=== PATIENT | male | born 1980 | race Caucasian/White ===

== ENCOUNTER 2018-04-13 11:34 | Emergency (ER) | payer MEDICAID ==
[~2018-04-13] VITALS: Ht 170.2 cm; Wt 57.2 kg
--- NOTE | 2018-04-13 11:42 | NUR ---
RECEIVED A 37 Y/O MALE PT VIA AMBULANCE, PT C/O HEADACHE WITH A RT FOREHEAD BUMP. CAME FROM [facility]. PT HAS FELL OFF OF BED. UPON ARRIVAL CONNECTED TO ECG MONITOR SHOWING SR.
[2018-04-13] MEDS ORDERED: LEVETIRACETAM 250 MG TABLET PO ONE (11:45)
[2018-04-13 12:13] LABS: BASOPHILS # (AUTO) 0.1 K/uL (0.0-8.0); BASOPHILS % (AUTO) 0.5 % (0.0-2.0); EOSINOPHILS % (AUTO) 0.2 % (0.0-7.0); HEMATOCRIT 40.9 % (36.7-47.1); HEMOGLOBIN 13.9 g/dL (12.5-16.3); LYMPHOCYTES # (AUTO) 1.1 K/uL (20.0-40.0); LYMPHOCYTES % (AUTO) 7.4 % (20.5-51.5); MEAN CORPUSCULAR HEMOGLOBIN 30.8 uug (23.8-33.4); MEAN CORPUSCULAR HGB CONC 34 g/dL (32.5-36.3); MEAN CORPUSCULAR VOLUME 90.4 fL (73.0-96.2); MONOCYTES # (AUTO) 0.5 K/uL (2.0-10.0); MONOCYTES % (AUTO) 3.7 % (0.0-11.0); NEUTROPHILS # (AUTO) 12.6 K/uL (1.8-8.9); NEUTROPHILS % (AUTO) 88.2 % (38.5-71.5); PLATELET COUNT (AUTO) 190 K/uL (152-348); RED BLOOD CELL COUNT(AUTO) 4.52 MIL/uL (4.06-5.63); WHITE BLOOD COUNT (AUTO) 14.3 K/uL (3.6-10.2)
[2018-04-13 12:19] LABS: CREATININE 0.7 mg/dL (0.6-1.3); POTASSIUM 3.6 mmol/L (3.5-5.1)
[2018-04-13] MEDS ORDERED: CYAN100T3 PO (12:44)
[2018-04-13] MEDS ORDERED: LEVE500T20 PO (12:44)
[2018-04-13] MEDS ORDERED: FERROUS SULFATE PO (12:44)
[2018-04-13] MEDS ORDERED: SULF1TAB48 PO (14:51)
[2018-04-13] MEDS ORDERED: DEXT15DR6 OP (14:51)
[2018-04-13] MEDS ORDERED: CITA10TA17 PO (14:51)
[2018-04-13] MEDS ORDERED: ZOLP5TAB2 PO (14:51)
[2018-04-13] MEDS ORDERED: DARU800T2 PO (14:51)
[2018-04-13] MEDS ORDERED: LACT1TAB20 PO (14:51)
[2018-04-13] MEDS ORDERED: EMTR1TAB6 PO (14:51)
[2018-04-13] MEDS ORDERED: CALC-770 PO (14:51)
[2018-04-13] MEDS ORDERED: SODI1TAB3 PO (14:52)
[2018-04-13] MEDS ORDERED: ONDA4TAB5 PO (14:52)
[2018-04-13] MEDS ORDERED: LEVO150T PO (14:52)
[2018-04-13] MEDS ORDERED: FAMO-132 PO (14:52)
[2018-04-13] MEDS ORDERED: MAGN400O6 PO (14:52)
[2018-04-13] MEDS ORDERED: CHOL400C8 PO (14:52)
[2018-04-13] MEDS ORDERED: VORI200T4 PO (14:52)
[2018-04-13] MEDS ORDERED: ACET325T53 PO (14:52)
[2018-04-13] MEDS ORDERED: LATA2.5D2 EACHEYE (14:52)
[2018-04-13] MEDS ORDERED: OMEG-143 PO (14:52)
[2018-04-13] MEDS ORDERED: RITO100T4 PO (14:52)
[2018-04-13] MEDS ORDERED: MAGN400T6 PO (14:52)
[2018-04-13] MEDS ORDERED: FOLI1TAB16 PO (14:52)
[2018-04-13 15:46] VITALS: BP 112/76
--- NOTE | 2018-04-13 15:46 | NUR ---
Patient discharged to [facility] in stable conditon. Written and verbal after care instructions given to EMT jos[address]ance [id number] Patient and EMT verbalizes understanding of instructions.
== END 2018-04-13 15:48 | disposition home or self-care (01) ==
LOC: ER 11:34
DX: S00.03XA Contusion of scalp, initial encounter (principal); G40.909 Epilepsy, unspecified, not intractable, without status epilepticus; Z79.899 Other long term (current) drug therapy; X58.XXXA Exposure to other specified factors, initial encounter; Y93.89 Activity, other specified; Y92.89 Other specified places as the place of occurrence of the external cause; Y99.8 Other external cause status
CPT/HCPCS: 36415; 70450; 85025; A4663

== ENCOUNTER 2018-05-12 23:29 | Inpatient (IN) | payer MEDICAID ==
[~2018-05-12] VITALS: Ht 162.6 cm; Wt 55.8 kg
--- NOTE | 2018-05-12 23:33 | NUR ---
Dr. Rodriguez at bedside for MSE.
[2018-05-12] MEDS ORDERED: LEVETIRACETAM IV 500 MG in IV DEXTROSE 5% 100 ML IV ONE (23:45)
[2018-05-12] MEDS ORDERED: IV NORMAL SALINE 1000 ML BAG IV ONE (23:45)
[2018-05-12] MEDS ORDERED: CYAN10009 PO (23:59)
[2018-05-12] MEDS ORDERED: LEVE1000 PO (23:59)
[2018-05-12] MEDS ORDERED: FERR325T28 PO (23:59)
[2018-05-13] MEDS ORDERED: LEVETIRACETAM 500 MG/5 ML VIAL IV ONE (00:05)
[2018-05-13 00:10] LABS: BASOPHILS # (AUTO) 0.1 K/uL (0.0-8.0); BASOPHILS % (AUTO) 0.7 % (0.0-2.0); EOSINOPHILS # (AUTO) 0.1 K/uL (0.0-0.7); EOSINOPHILS % (AUTO) 1.7 % (0.0-7.0); HEMATOCRIT 38.3 % (36.7-47.1); HEMOGLOBIN 12.9 g/dL (12.5-16.3); LYMPHOCYTES % (AUTO) 25.5 % (20.5-51.5); MEAN CORPUSCULAR HEMOGLOBIN 31.6 uug (23.8-33.4); MEAN CORPUSCULAR HGB CONC 34 g/dL (32.5-36.3); MONOCYTES # (AUTO) 0.4 K/uL (2.0-10.0); MONOCYTES % (AUTO) 5.6 % (0.0-11.0); NEUTROPHILS # (AUTO) 5.1 K/uL (1.8-8.9); NEUTROPHILS % (AUTO) 66.5 % (38.5-71.5); PLATELET COUNT (AUTO) 172 K/uL (152-348); RED BLOOD CELL COUNT(AUTO) 4.08 MIL/uL (4.06-5.63); WHITE BLOOD COUNT (AUTO) 7.6 K/uL (3.6-10.2)
[2018-05-13 00:20] LABS: CREATININE 0.7 mg/dL (0.6-1.3); POTASSIUM 3.4 mmol/L (3.5-5.1)
[2018-05-13 00:26] LABS: BILIRUBIN,DIRECT 0.2 mg/dL (0.0-0.2); BILIRUBIN,TOTAL 0.8 mg/dL (0.2-1.0); TOTAL PROTEIN, SERUM 7.3 g/dL (6.4-8.2)
--- NOTE | 2018-05-13 01:24 | NUR ---
Pt out of ER for CT.
--- NOTE | 2018-05-13 01:40 | NUR ---
Pt back to ER from CT.
--- NOTE | 2018-05-13 02:03 | NUR ---
DR MENDOZA SPEAKING WITH DR PINON
--- NOTE | 2018-05-13 02:11 | NUR ---
Report given to Clinton IRONING PLEATER.
[2018-05-13] MEDS: IV NS 1000 ML 1,000 ML IV PRN ×2 (03:23→18:17)
[2018-05-13 04:00] VITALS: BP 89/62
[2018-05-13 05:39] LABS: BASOPHILS # (AUTO) 0.1 K/uL (0.0-8.0); BASOPHILS % (AUTO) 0.9 % (0.0-2.0); EOSINOPHILS # (AUTO) 0.2 K/uL (0.0-0.7); EOSINOPHILS % (AUTO) 2.5 % (0.0-7.0); HEMATOCRIT 37.3 % (36.7-47.1); HEMOGLOBIN 12.7 g/dL (12.5-16.3); LYMPHOCYTES # (AUTO) 2.3 K/uL (20.0-40.0); LYMPHOCYTES % (AUTO) 34.9 % (20.5-51.5); MEAN CORPUSCULAR HEMOGLOBIN 32.1 uug (23.8-33.4); MEAN CORPUSCULAR HGB CONC 34 g/dL (32.5-36.3); MEAN CORPUSCULAR VOLUME 93.9 fL (73.0-96.2); MONOCYTES # (AUTO) 0.4 K/uL (2.0-10.0); MONOCYTES % (AUTO) 5.4 % (0.0-11.0); NEUTROPHILS # (AUTO) 3.8 K/uL (1.8-8.9); NEUTROPHILS % (AUTO) 56.3 % (38.5-71.5); PLATELET COUNT (AUTO) 166 K/uL (152-348); RED BLOOD CELL COUNT(AUTO) 3.97 MIL/uL (4.06-5.63); WHITE BLOOD COUNT (AUTO) 6.7 K/uL (3.6-10.2)
[2018-05-13 05:48] LABS: ALANINE AMINOTRANSFERASE 15 U/L (16-63); ALKALINE PHOSPHATASE 65 U/L (50-136); ASPARTATE AMINOTRANSFERASE 8 U/L (15-37); BILIRUBIN,TOTAL 1.2 mg/dL (0.2-1.0); CARBON DIOXIDE 25 mmol/L (21-32); CHLORIDE 107 mmol/L (98-107); CREATININE 0.6 mg/dL (0.6-1.3); GLUCOSE 96 mg/dL (74-106); POTASSIUM 3.5 mmol/L (3.5-5.1); TOTAL PROTEIN, SERUM 6.6 g/dL (6.4-8.2); UREA NITROGEN, BLOOD 10 mg/dL (7-18)
[2018-05-13 08:00] VITALS: BP 98/59
[2018-05-13] MEDS: LEVETIRACETAM 500 MG TABLET PO SCH ×2 (08:31→20:09)
[2018-05-13] MEDS: FERROUS SULFATE 325 MG TABEC PO SCH (08:31)
[2018-05-13] MEDS ORDERED: CYANOCOBALAMIN 1,000 MCG TABLET PO SCH (09:00)
[2018-05-13 12:00] VITALS: BP 111/61
[2018-05-13 16:00] VITALS: BP 99/69
--- NOTE | 2018-05-13 16:25 | NUR ---
Telephone report given to charge account clerkrn. Geiger. patient will be taken up via wheelchair. Patient AAOx3. Iv line patent.
[2018-05-13 17:00] VITALS: BP 96/62
--- NOTE | 2018-05-13 18:21 | NUR ---
Report received from charge nurse Sj. Patient is laying in bed, bed is in low locked position. VSS, no distress noted. Patient is alert and oriented x3. Verbalizes comfort. All needs met. Patient has NS running at 75 through peripheral IV access right forearm. 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 Safety/seizure precautions implemented. Will continue to monitor.
--- NOTE | 2018-05-13 19:30 | NUR ---
PATIENT AWAKE ALERT, NO COMPLAIN OF PAIN NOR DISCOMFORT, TELE MONITOR SINUS RHYTHM AT THIS TIME. ASSISTED WITH TOILETING, CALL LIGHT WITHIN REACH. NO REPORT THAT PATIENT HAS SEIZURE ACTIVITY AT THIS TIME. CALL LIGHT WITHIN REACH. CONT TO MONITOR.
[2018-05-13 19:48] VITALS: BP 89/55
[2018-05-14] VITALS: BP 90/56
[2018-05-14 04:00] VITALS: BP 88/57
[2018-05-14] MEDS: IV NS 1000 ML 1,000 ML IV PRN (06:02)
--- NOTE | 2018-05-14 06:38 | NUR ---
PATIENT ASLEEP BUT EASILY AROUSABLE. NO SOB NO CHEST PAIN, TELE MONITOR SINUS RHYTHM. NO EPISODES OF SEIZURES NOTED AT THIS TIME. ASSISTED WITH TOILETING FOR SAFETY. CONT TO MONITOR.
[2018-05-14] MEDS ORDERED: CYAN100T3 PO (07:06)
--- NOTE | 2018-05-14 07:20 | NUR ---
RECEIVED PATIENT ON BED, ASLEEP, AAOX3, TELE SR. NO ACUTE DISTRESS NOTED. IV ACCESS ON RIGHT FOREARM#20 RUNNING NS@ 75 CC/HR INFUSING WELL. REINFORCED SEIZURE AND SAFETY PRECAUTIONS BED ALARM ON. BRP WITH STAND BY ASSIST. COMFORT MEASURES PROVIDED. CALL LIGHT WITHIN REACH. WILL CONTINUE TO MONITOR CLOSELY.
[2018-05-14] MEDS: FERROUS SULFATE 325 MG TABEC PO SCH (08:40)
[2018-05-14] MEDS: CYANOCOBALAMIN 100 MCG TABLET PO SCH (08:40)
[2018-05-14] MEDS: LEVETIRACETAM 500 MG TABLET PO SCH ×2 (08:40→21:25)
[2018-05-14] MEDS ORDERED: CYANOCOBALAMIN 1,000 MCG TABLET PO SCH (09:00)
[2018-05-14 11:12] VITALS: BP 86/61
[2018-05-14 15:35] VITALS: BP 94/56
--- NOTE | 2018-05-14 18:11 | NUR ---
PATIENT AWAKE, RESTING, IN STABLE CONDITION. NO SIGNIFICANT JENISE DURING SHIFT IV ACCESS ON RIGHT FOREARM #20 INTACT AND PATENT NS @ 75CC/HR INFUSING WELL. SEIZURE AND SAFETY PRECS OBSERVED AT ALL TIMES. ALL NEEDS ATTENDED AND ANTICIPATED. CALL LIGHT WITHIN REACH. WILL ENDORSE ACCORDINGLY
--- NOTE | 2018-05-14 19:30 | NUR ---
PATIENT AWAKE, AMBULATE TO TOILETING WITH STAND BY ASSIST. NO COMPLAIN OF PAIN AT THIS TIME. PATIENT REFUSED IV HYDRATION AT THIS TIME. CONT TO MONITOR. NO REPORT OF SEIZURE ACTIVITY NOTED CONT TO MONITOR.
[2018-05-14 20:23] VITALS: BP 92/60
[2018-05-15] MEDS: IV NS 1000 ML 1,000 ML IV PRN (03:26)
[2018-05-15 04:27] VITALS: BP 92/64
--- NOTE | 2018-05-15 05:58 | NUR ---
PATIENT ASLEEP BUT EASILY AROUSABLE, NO SOB NO CHEST PAIN, PATIENT ASSISTED WITH TOILETING, PATIENT REFUSED IV HYDRATION, KEEP DISCONNECTING HIMSELF. IV ON HOLD AT THIS TIME. PATIENT DRINK FLUIDS ADEQUATELY. WILL NOTIFY MD FOR THE BEHAVIOUR. CONT TO MONITOR. NO SEIZURE ACTIVITY NOTED.
--- NOTE | 2018-05-15 07:25 | NUR ---
PATIENT IN BED ASLEEP , NO S/S OF ACUTE DISTRESS NOTE, NO SOB , NO S/S OF PAIN. BED IN LOW POSITION AND SIDE RAILS UP X2 , BED ALARM, CONTINUE TO MONITOR FOR SAFETY, NO SEIZURE NOTED. CONTINUE PLAN OF CARE
[2018-05-15] MEDS: CYANOCOBALAMIN 100 MCG TABLET PO SCH (08:38)
[2018-05-15] MEDS: FERROUS SULFATE 325 MG TABEC PO SCH (08:38)
[2018-05-15] MEDS: LEVETIRACETAM 500 MG TABLET PO SCH (08:39)
--- NOTE | 2018-05-15 09:00 | NUR ---
MEDICATIONS GIVEN ORDERED AND PATIENT IS EATING AND DRINKING FLUIDS ADEQUATELY, NO C/O PAIN AT THIS TIME.
[2018-05-15 11:00] VITALS: BP 82/56
--- NOTE | 2018-05-15 15:00 | NUR ---
PATIENT DISCHARGE TO [facility] VIA AMBULANCE WITH 2 EMT., DISCHARGE INSTRUCTION AND PRESCRIBE MEDICATION GIVEN TO PATIENT AND VERBALIZE UNDERSTANDING. NO C/O PAIN AT THIS TIME, NO ACUTE DISTRESS NOTE , NO SEIZURE EPISODE NOTED AT THIS TIME. IV AND ID BAND REMOVED. BELONGINGS ACCOUNTED FOR AND QUESTIONS AND CONCERNS ADDRESSED.
== END 2018-05-15 15:00 | DRG 53 ==
LOC: ER 23:31 → CCU 05-13 02:23 → TELE3 05-13 17:05 → MEDSURG3 05-14 16:06
PROVIDERS: ADMIT Internal Medicine; ATTEND Internal Medicine Nephrology
DX: G40.909 Epilepsy, unspecified, not intractable, without status epilepticus (principal); G93.0 Cerebral cysts; F79 Unspecified intellectual disabilities; Z79.899 Other long term (current) drug therapy; S00.83XA Contusion of other part of head, initial encounter; W19.XXXA Unspecified fall, initial encounter; Y92.099 Unspecified place in other non-institutional residence as the place of occurrence of the external cause; J32.0 Chronic maxillary sinusitis; Z87.81 Personal history of (healed) traumatic fracture; H61.21 Impacted cerumen, right ear
CPT/HCPCS: 36415; 70030-TC; 70450; 71045; 72125; 85025; 85730; 93005; A4663; G0378; J1953; J7030; J7060

== ENCOUNTER 2018-06-20 15:12 | Emergency (ER) | payer MEDICAID ==
[~2018-06-20] VITALS: Ht 162.6 cm; Wt 54.4 kg
[~2018-06-20 15:12] MED LIST: CYAN100T3 PO; FERR325T28 PO; LEVE1000 PO
[2018-06-20] MEDS ORDERED: LEVE500T9 PO (15:26)
--- NOTE | 2018-06-20 15:36 | NUR ---
PT IS IN ROOM #2A. DR SCHROEDER EVALUATED THE PT.
[2018-06-20] MEDS ORDERED: LORAZEPAM 2 MG/1 ML VIAL ONE (15:43)
[2018-06-20] MEDS ORDERED: LORAZEPAM 2 MG/1 ML VIAL IV ONE (15:45)
[2018-06-20] MEDS ORDERED: IV NORMAL SALINE 1000 ML BAG IV ONE (16:00)
[2018-06-20] MEDS ORDERED: LEVETIRACETAM IV 500 MG in IV DEXTROSE 5% 100 ML IV ONE (16:00)
[2018-06-20] MEDS ORDERED: LEVETIRACETAM 500 MG/5 ML VIAL IV ONE (16:13)
[2018-06-20] MEDS ORDERED: LORAZEPAM 2 MG/1 ML VIAL IM ONE (16:15)
[2018-06-20 16:32] LABS: CREATININE 0.9 mg/dL (0.6-1.3); POTASSIUM 3.3 mmol/L (3.5-5.1)
--- NOTE | 2018-06-20 19:12 | NUR ---
REPORT GIVEN TO BOXCAR WEIGHER RN.
--- NOTE | 2018-06-20 19:28 | NUR ---
Spoke to Holly @ [facility] to request for transport back to [facility]. Trip#[id number] ETA [id number]
--- NOTE | 2018-06-20 19:37 | NUR ---
Patient asleep, woke patient up to get an update on how the patient feels. Patient stated that he feels better, but sleepy. Assured patient that he will feel a little groggy/drowsy due to the medications that were administered. Informed patient transport will be coming to pick him up at 2100, patient understood. NAD, VSS. Will continue to observe until patient is transported.
--- NOTE | 2018-06-20 20:55 | NUR ---
Patient transported back to hospital for special care, in stable condition.
[2018-06-20 20:56] VITALS: BP 102/73
--- NOTE | 2018-06-20 20:57 | NUR ---
Spoke to Barbara from [facility], informed her that the patient needs to contact primary physician regarding increasing the Keppra dose back to what it is.
== END 2018-06-20 21:00 | disposition home or self-care (01) ==
LOC: ER 15:13
DX: S00.03XA Contusion of scalp, initial encounter (principal); G40.909 Epilepsy, unspecified, not intractable, without status epilepticus; Z79.899 Other long term (current) drug therapy; W18.30XA Fall on same level, unspecified, initial encounter; Y93.89 Activity, other specified; Y92.89 Other specified places as the place of occurrence of the external cause; Y99.8 Other external cause status
CPT/HCPCS: 36415; 70450; 80048; 96365; 96372; 99284; J1953; J2060; J7060; A4663; J7030

== ENCOUNTER 2018-07-31 09:21 | Emergency (ER) | payer MEDICAID ==
[~2018-07-31] VITALS: Ht 165.1 cm; Wt 56.7 kg
[~2018-07-31 09:21] MED LIST changes: -LEVE1000 PO; +LEVE500T9 PO
--- NOTE | 2018-07-31 09:21 | NUR ---
brought in by paramedics post unwitnessed mechanical fall, a resident of [facility].
--- NOTE | 2018-07-31 09:25 | NUR ---
seen by dr Navarro
[2018-07-31] MEDS ORDERED: ACETAMINOPHEN 325 MG TABLET PO ONE (09:30)
[2018-07-31] MEDS ORDERED: ONDANSETRON ODT 4 MG TAB.RAPDIS SL ONE (09:30)
--- NOTE | 2018-07-31 09:35 | NUR ---
medications given po for head pain and nausea with vomiting
[2018-07-31] MEDS ORDERED: ONDANSETRON ODT 4 MG TAB.RAPDIS ONE (09:36)
[2018-07-31] MEDS ORDERED: ACETAMINOPHEN 325 MG TABLET ONE (09:36)
--- NOTE | 2018-07-31 09:45 | NUR ---
called [id number] for ambulance pick to [facility] for Head Ct
--- NOTE | 2018-07-31 10:05 | NUR ---
picked up by ambulance to [facility] for head CT
--- NOTE | 2018-07-31 11:09 | NUR ---
back to room 2a post head ct
--- NOTE | 2018-07-31 11:15 | NUR ---
exitcare and homegoing instructions given to patient
--- NOTE | 2018-07-31 11:29 | NUR ---
called [id number] for ambulance pickup back to [facility]. ETA 1300
--- NOTE | 2018-07-31 11:32 | NUR ---
called to [facility] to give report.
[2018-07-31 12:45] VITALS: BP 101/78
--- NOTE | 2018-07-31 12:51 | NUR ---
REPORT WAS GIVEN TO AMBULANCE EMT NUMBER [id number]
== END 2018-07-31 12:54 | disposition home or self-care (01) ==
LOC: ER 09:23
DX: S00.01XA Abrasion of scalp, initial encounter (principal); R11.2 Nausea with vomiting, unspecified; Z79.899 Other long term (current) drug therapy; W19.XXXA Unspecified fall, initial encounter; Y93.89 Activity, other specified; Y92.89 Other specified places as the place of occurrence of the external cause; Y99.8 Other external cause status
CPT/HCPCS: 70450; A4663; Q0162

== ENCOUNTER 2018-11-05 10:22 | Emergency (ER) | payer SELFPAY ==
[~2018-11-05] VITALS: Ht 165.1 cm; Wt 56.7 kg
[2018-11-05 11:15] LABS: BASOPHILS # (AUTO) 0.1 K/uL (0.0-8.0); BASOPHILS % (AUTO) 0.7 % (0.0-2.0); EOSINOPHILS % (AUTO) 0.4 % (0.0-7.0); HEMATOCRIT 41.7 % (36.7-47.1); LYMPHOCYTES # (AUTO) 1.2 K/uL (20.0-40.0); LYMPHOCYTES % (AUTO) 11.2 % (20.5-51.5); MEAN CORPUSCULAR HEMOGLOBIN 32.7 uug (23.8-33.4); MEAN CORPUSCULAR HGB CONC 34 g/dL (32.5-36.3); MEAN CORPUSCULAR VOLUME 97.2 fL (73.0-96.2); MONOCYTES # (AUTO) 0.4 K/uL (2.0-10.0); NEUTROPHILS # (AUTO) 8.7 K/uL (1.8-8.9); NEUTROPHILS % (AUTO) 83.7 % (38.5-71.5); PLATELET COUNT (AUTO) 176 K/uL (152-348); RED BLOOD CELL COUNT(AUTO) 4.29 MIL/uL (4.06-5.63); WHITE BLOOD COUNT (AUTO) 10.5 K/uL (3.6-10.2)
[2018-11-05 11:16] LABS: CREATININE 0.7 mg/dL (0.6-1.3); POTASSIUM 3.7 mmol/L (3.5-5.1)
[2018-11-05 11:21] LABS: BILIRUBIN,DIRECT 0.2 mg/dL (0.0-0.2); TOTAL PROTEIN, SERUM 7.6 g/dL (6.4-8.2)
[2018-11-05] MEDS ORDERED: ACETAMINOPHEN ES 500 MG TABLET PO ONE (12:00)
[2018-11-05] MEDS ORDERED: ACETAMINOPHEN ES 500 MG TABLET ONE (12:06)
--- NOTE | 2018-11-05 12:43 | NUR ---
francisca urena to transfer the pt back. Addendum: 11/05/18 at 1340 by FRANKI michael [id number], trip number [id number].
--- NOTE | 2018-11-05 16:07 | NUR ---
[facility] AT BEDSIDE TO TRANSFER THE PT BACK TO [facility]. PT REMAINED COMFORTABLE THE WHOLE ER STAY. NO SIGN OF DISTRESS OR COMPLAIN
[2018-11-05 16:15] VITALS: BP 101/62
== END 2018-11-05 16:17 | disposition home or self-care (01) ==
LOC: ER 10:22
DX: R56.9 Unspecified convulsions (principal); Z79.899 Other long term (current) drug therapy
CPT/HCPCS: 36415; 70450; 71045; 80299; 85025; 85730; 93005; A4663; A9150

== ENCOUNTER 2019-01-14 11:14 | Emergency (ER) | payer SELFPAY ==
[~2019-01-14] VITALS: Ht 175.3 cm; Wt 68.0 kg
[2019-01-14] MEDS ORDERED: HALDOL PO (11:37)
--- NOTE | 2019-01-14 11:37 | NUR ---
Patient ambulated with stable gait. Patient accompanied by caregiver from [facility]. Patient A/Ox3. Speech is clear, welsh speaker only but caregiver is able to translate for patient. Patient came for c/o right shoulder pain x3 days. Patient mobility in LUE is limited, adduction causes pain. Patient in bed at lowest position, sr upx2, call light within reach. Fall precautions implemented per protocol.
[2019-01-14] MEDS ORDERED: IBUPROFEN 600 MG TABLET PO ONE (12:00)
[2019-01-14] MEDS ORDERED: IBUPROFEN 600 MG TABLET ONE (12:03)
[2019-01-14 12:12] VITALS: BP 113/73
--- NOTE | 2019-01-14 12:12 | NUR ---
Patient discharged to home in stable conditon. Written and verbal after care instructions given. Patient verbalizes understanding of instructions. Patient ambulated with stable gait.
== END 2019-01-14 12:13 | disposition home or self-care (01) ==
LOC: ER 11:16
DX: M25.512 Pain in left shoulder (principal); Z79.899 Other long term (current) drug therapy; W06.XXXA Fall from bed, initial encounter; Y93.89 Activity, other specified; Y92.89 Other specified places as the place of occurrence of the external cause; Y99.8 Other external cause status
CPT/HCPCS: 73030; A4663